=== PATIENT | male | born 1975 | race Caucasian/White ===

== ENCOUNTER 2020-06-19 16:10 | Emergency (ER) | payer OTHER ==
[~2020-06-19] VITALS: Ht 188 cm; Wt 101.6 kg
[~2020-06-19 16:10] MED LIST: NOHOMEMEDICATIONS; PERCOCET 5-3251 EACH PO
[2020-06-19] MEDS ORDERED: FAMOTIDINE 20 M20 MG PO (16:51)
[2020-06-19] MEDS ORDERED: PREDNISONE 20 M20 MG PO (16:51)
[2020-06-19] MEDS ORDERED: BENADRYL25 MG PO (16:51)
[2020-06-19] MEDS ORDERED: EPIPEN0.3 MG/0.1 IM (16:51)
[2020-06-19 18:10] VITALS: BP 152/99
== END 2020-06-19 18:11 | disposition home or self-care (01) ==
LOC: M.ERS 16:10
DX: T63.441A Toxic effect of venom of bees, accidental (unintentional), initial encounter (principal); T78.49XA Other allergy, initial encounter; R22.0 Localized swelling, mass and lump, head; Y92.89 Other specified places as the place of occurrence of the external cause